=== PATIENT | female | born 1945 | race Caucasian/White ===

== ENCOUNTER 2016-07-30 18:08 | Emergency (ER) | payer SELFPAY ==
[2016-07-30 18:14] VITALS: RESP 16
[2016-07-30] MEDS ORDERED: HYDROCOD/APAP 5/325 PREPACK#6 BTL TAKEHOME ONE (20:36)
--- NOTE | 2016-07-30 20:36 | EDPHY ---
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 htn - Social History Smoking Status: Never smoked HPI/ROS: CHIEF COMPLAINT: Fall, right rib pain HISTORY OF PRESENT ILLNESS: Patient was in her bathroom yesterday when she tripped, falling on her right side. She struck her right ribs on the edge of the bathtub. Since then she has had pain over the right mid axillary line. It is moderate to severe pain with movement or inspiration. It is minimal at rest. Currently negative when laying in the bed. No fevers or chills. Some worsening with inspiration. Minimal shortness of breath with exertion. No shortness of breath at rest. No abdominal pain. No hematuria. No nausea or vomiting. No other associated complaints or modifying factors. She does not take any blood thinners. REVIEW OF SYSTEMS: Ten systems reviewed and are negative unless otherwise noted in the HPI PERTINENT MEDICAL HISTORY: Prediabetic, hypertension. No blood thinners EXAMINATION General Appearance: Alert, no distress Head: normocephalic, atraumatic Eyes: Pupils equal and round, no conjunctival pallor or injection ENT, Mouth: Mucous membranes moist. Uvula midline. Neck: Normal inspection, supple, non-tender Respiratory: Lungs are clear to auscultation. No wheezing, rhonchi or crackles. There is tenderness over the right mid axillary line. No crepitus or paradoxical movements. Cardiovascular: Regular rate and rhythm. No murmur. Pulses intact distally. Gastrointestinal: Abdomen is soft and nontender. No point tenderness of the right upper upper quadrant. No CVA tenderness. No rigidity. No distention. No guarding. Nonacute abdomen. Back: non-tender, no bony abnormalities Neurological: A&O, nonfocal, normal gait Skin: Warm and dry, no rash. No lacerations abrasions or contusions. Extremities: Nontender, no pedal edema Psychiatric: Mood and affect normal DIFFERENTIAL DIAGNOSES: Including but not limited to rib fracture, rib contusion, hematoma, musculoskeletal contusion, strain, liver laceration, renal laceration MDM: 8:35 p.m. Mechanical fall with right-sided rib pain. No abnormality on auscultation. No bruising, bleeding on examination. No abdominal pain or tenderness. Chest x- ray is unremarkable. Vital signs are all within normal limits. I suspect she has a contusion of the rib. Recommend ibuprofen 600 mg every 8 hours for the next 3-5 days. Recommend [place] as prescribed for the next 1-2 days. Return here should she need pain medicine beyond that. Return here for any fever, chills, chest pain or shortness of breath. Patient is comfortable with this plan and will be discharged home stable condition. SUPERVISION: This patient was independently evaluated without direct examination by the attending physician. Case was discussed with attending physician. (Casey Fonseca) Constitutional: Initial Vital Signs Temperature (C) 36.5 C 07/30/16 18:12 Heart Rate 56 L 07/30/16 18:12 Respiratory Rate 16 07/30/16 18:12 Blood Pressure 139/78 H 07/30/16 18:12 O2 Sat (%) 95 07/30/16 18:12 O2 Delivery Mode Room Air Allergies/Adverse Reactions: No Known Allergies Allergy (Unverified 07/30/16 18:11) Home Medications: Medication Instructions Recorded Unobtainable 07/30/16 Medical Decision Making ED Course/Re-evaluation: I did not see this patient while she was in the emergency department. However her care was discussed with the PA while the patient was in the department. I agree with treatment plan and management (Krystian Padilla) - Data Points Medications Given: Discontinued Medications Hydrocodone Bitart/Acetaminophen ([place] 5/325mg Prepack#6) 1 btl TAKEHOME EDNOW ONE Stop: 07/30/16 20:37 Last Admin: 07/30/16 20:47 Dose: 1 btl Departure - Departure Disposition: Home, Routine, Self-Care Clinical Impression: Contusion of rib on right side, Blunt trauma Condition: Good Instructions: Rib Contusion (ED) Additional Instructions: 1. Ibuprofen 600 mg every 8 hours for the next 5 days and stop 2. Warm compresses or heating pad to the affected area 3. [place] for the next 1-2 day as prescribed. Return here if pain persists beyond that point 4. Follow up with primary care physician. 5. Return here for any worsening pain, fever, chills, anterior chest pain, shortness of breath 6. Return here for any blood in the urine Referrals: NONE *PRIMARY CARE P,. [Primary Care Provider] - As per Instructions [facility],. [Clinic] - As per Instructions
[2016-07-30 20:49] VITALS: BP 133/66; PULSE 66; TEMP 97.9; O2SAT 96
== END 2016-07-30 20:48 | disposition home or self-care (01) ==
DX: S20.211A Contusion of right front wall of thorax, initial encounter (principal); E11.9 Type 2 diabetes mellitus without complications; I10 Essential (primary) hypertension; W01.198A Fall on same level from slipping, tripping and stumbling with subsequent striking against other object, initial encounter; Y92.002 Bathroom of unspecified non-institutional (private) residence as the place of occurrence of the external cause